=== PATIENT | female | born 1980 | race Caucasian/White ===

== ENCOUNTER 2019-10-26 11:25 | Outpatient (CLI) | payer BC, SELFPAY ==
[2019-10-27 02:16] LABS: COVID-19 RT-PCR UVMMC Result Negative (Negative)
== END 2019-10-26 11:45 ==
PROVIDERS: PCP Nurse Practitioner; Visit Provider Nurse Practitioner
DX: R53.83 Other fatigue (principal)
CPT/HCPCS: U0003